=== PATIENT | male | born 1975 | race Caucasian/White ===

== ENCOUNTER 2021-02-18 10:33 | Inpatient (IN) | payer MEDICAID ==
[~2021-02-18] VITALS: Ht 182.9 cm; Wt 102.4 kg
[2021-02-18] VITALS (38 sets, daily range): BP systolic 103–133; BP diastolic 49–76
[2021-02-18] MEDS ORDERED: NALOXONE HCL 1MG/ML 2ML SYRINGE ONE (10:38)
[2021-02-18] MEDS ORDERED: NALOXONE HCL 1MG/ML 2ML SYRINGE IV ONE (10:45)
[2021-02-18 11:06] LABS: Basophils # (auto) 0 10 ^3/uL (0-0.2); Basophils % (auto) 0.5 % (0.0-2.0); Eosinophils # (auto) 0 10 ^3/uL (0-0.8); Hematocrit 37.1 % (41.0-53.0); Hemoglobin 11.8 g/dL (13.5-17.5); Lymphocytes # (auto) 0.5 10 ^3/uL (0.4-5.4); Mean Corpuscular Hemoglobin 30.8 pg (28.0-32.0); Mean Corpuscular Hgb Conc. 31.8 g/dL (32.0-36.0); Mean Corpuscular Volume 96.7 fL (80.0-100.0); Monocytes # (auto) 1.1 10 ^3/uL (0-1.3); Monocytes % (auto) 11.3 % (0.0-12.0); Neutrophils # (auto) 8.3 10 ^3/uL (1.6-8.6); Neutrophils % (auto) 83.2 % (37.0-80.0); Nucleated Red Blood Cells % 0.1 %; Platelet Count (auto) 294 10^3/uL (140-450); Red Blood Cells 3.84 10^6/uL (4.5-5.90); Red Cell Distribution Width 15.2 % (11.8-14.3)
[2021-02-18 11:19] LABS: INR 0.98 (0.9-1.15)
[2021-02-18 11:23] LABS: Albumin 3.1 g/dL (3.4-5.0); Anion Gap 7 (5-15); Blood Urea Nitrogen 13 mg/dL (7-18); Calcium 9.6 mg/dL (8.5-10.1); Carbon Dioxide 29 mmol/L (21-32); Chloride 108 mmol/L (98-107); Glucose 112 mg/dL (74-106); Magnesium 2.8 mg/dL (1.6-2.6); Potassium 5.5 mmol/L (3.5-5.1); Sodium 144 mmol/L (136-145)
[2021-02-18 11:28] LABS: Alanine Aminotransferase 15 U/L (16-61); Alkaline Phosphatase 168 U/L (45-117); Aspartate Aminotransferase 10 U/L (15-37); Bilirubin, Total 0.3 mg/dL (0.2-1.0); GFR African American 69 mL/min; GFR Non-African American 57 mL/min; Total Protein 7.8 g/dL (6.4-8.2)
[2021-02-18] MEDS ORDERED: MIDAZOLAM DRIP 50 mg/50mL 50 ML IV ONE (12:24)
[2021-02-18] MEDS ORDERED: MIDAZOLAM HCL 5 MG/ML-1ML VIAL ONE (12:25)
[2021-02-18 12:27] LABS: Alcohol, Urine < 3.0 mg/dL (0-10); Amphetamine Screen, Urine NEGATIVE (NEGATIVE); Barbiturate Scree,Urine NEGATIVE (NEGATIVE); Benzodiazephine Screen, Urine POSITIVE (NEGATIVE); Cannabinoid Screen, Urine NEGATIVE (NEGATIVE); Cocaine Screen, Urine NEGATIVE (NEGATIVE); Opiate Scree,Urine NEGATIVE (NEGATIVE); Phencyclidine Screen, Urine NEGATIVE (NEGATIVE)
[2021-02-18] MEDS ORDERED: ETOMIDATE (2MG/ML) 20ML VIAL IV ONE (12:27)
[2021-02-18] MEDS: MIDAZOLAM DRIP 50 mg/50mL 50 ML IV SCH ×2 (12:28→20:12)
[2021-02-18] MEDS ORDERED: SUCCINYLCHOLINE CHLORIDE 20 MG/ML 10ML VIAL IV ONE (12:28)
[2021-02-18] MEDS ORDERED: MIDAZOLAM HCL 5 MG/ML-1ML VIAL IV ONE (12:30)
[2021-02-18 12:35] LABS: Lactic Acid w/Reflex 4.6 mmol/L (0.4-2.0)
[2021-02-18 12:48] LABS: Urine Bacteria NONE SEEN /hpf (None Seen); Urine Blood Negative /uL (Negative); Urine Hyaline Cast FEW /lpf (0 - 2); Urine Mucus FEW (None Seen); Urine Specific Gravity 1.018 (1.001-1.035); Urine WBC 4 /hpf (0 - 3)
[2021-02-18] MEDS ORDERED: cefTRIAXone 1GM/50ML D5W 50 ML IV ONE (13:00)
[2021-02-18] MEDS ORDERED: SODIUM CHLORIDE 0.9% 1,000 ML IV SCH (14:15)
[2021-02-18] MEDS ORDERED: NITROGLYCERIN 0.4 MG SL TAB SL PRN (14:15)
[2021-02-18] MEDS ORDERED: MORPHINE SULF INJ 2 MG/ML SYRINGE 1ML IV PRN (14:15)
[2021-02-18] MEDS ORDERED: fentaNYL Drip 2500mCg/250mlNS 250 ML IV ONE (14:52)
[2021-02-18] MEDS: fentaNYL Drip 2500mCg/250mlNS 250 ML IV SCH (14:53)
[2021-02-18 15:42] LABS: BUN/Creatinine Ratio 10.8; Calcium 9.4 mg/dL (8.5-10.1); Potassium 5.3 mmol/L (3.5-5.1)
[2021-02-18] MEDS ORDERED: SODIUM CHLORIDE 0.9% 1,000 ML IV ONE (16:30)
[2021-02-18] MEDS ORDERED: DEXTROSE (50%) 50ML SYRG IV ONE (16:30)
[2021-02-18] MEDS ORDERED: VANCOMYCIN PER PHARMACY 0 MG IV SCH (16:30)
[2021-02-18] MEDS ORDERED: CALCIUM GLUC 1,000mg/50ml-NS 50 ML IV ONE (16:30)
[2021-02-18] MEDS ORDERED: InsuLIN REG 1unit/0.01ml Soln (100units/ml) IV ONE (16:30)
[2021-02-18] MEDS: VANCOMYCIN 1,250 MG in D5W 5% 250 ML IV SCH (17:34)
[2021-02-18] MEDS: PIPERACILLIN-TAZOB 3.375GM 100 ML IV SCH ×2 (18:27→23:34)
[2021-02-18 19:45] LABS: BUN/Creatinine Ratio 13.7; Calcium 9.8 mg/dL (8.5-10.1); Potassium 3.5 mmol/L (3.5-5.1)
[2021-02-19] VITALS (87 sets, daily range): BP systolic 88–140; BP diastolic 50–74
[2021-02-19] MEDS: MIDAZOLAM DRIP 50 mg/50mL 50 ML IV SCH (01:20)
[2021-02-19] MEDS: fentaNYL Drip 2500mCg/250mlNS 250 ML IV SCH (01:21)
[2021-02-19 04:13] LABS: Basophils # (auto) 0.1 10 ^3/uL (0-0.2); Basophils % (auto) 0.8 % (0.0-2.0); Eosinophils # (auto) 0 10 ^3/uL (0-0.8); Hematocrit 29.1 % (41.0-53.0); Hemoglobin 9.7 g/dL (13.5-17.5); Lymphocytes # (auto) 1.6 10 ^3/uL (0.4-5.4); Lymphocytes % (auto) 22.2 % (10.0-50.0); Mean Corpuscular Hemoglobin 30.6 pg (28.0-32.0); Mean Corpuscular Hgb Conc. 33.4 g/dL (32.0-36.0); Mean Corpuscular Volume 91.9 fL (80.0-100.0); Monocytes # (auto) 0.6 10 ^3/uL (0-1.3); Monocytes % (auto) 8.4 % (0.0-12.0); Neutrophils % (auto) 68.6 % (37.0-80.0); Nucleated Red Blood Cells % 0.1 %; Platelet Count (auto) 257 10^3/uL (140-450); Red Blood Cells 3.17 10^6/uL (4.5-5.90); Red Cell Distribution Width 15.6 % (11.8-14.3); White Blood Cell 7.3 10^3/uL (4.4-10.8)
[2021-02-19 04:34] LABS: Albumin 2.4 g/dL (3.4-5.0); Calcium 9.4 mg/dL (8.5-10.1); Magnesium 2.5 mg/dL (1.6-2.6)
[2021-02-19 04:41] LABS: BUN/Creatinine Ratio 20.5; Bilirubin, Total 0.3 mg/dL (0.2-1.0); Total Protein 6.4 g/dL (6.4-8.2)
[2021-02-19 04:52] LABS: Potassium 2.8 mmol/L (3.5-5.1)
[2021-02-19] MEDS: VANCOMYCIN 1,250 MG in D5W 5% 250 ML IV SCH ×2 (05:00→17:06)
[2021-02-19] MEDS ORDERED: D5W/SOD CHL 0.45% 1,000 ML IV SCH (05:15)
[2021-02-19] MEDS: PIPERACILLIN-TAZOB 3.375GM 100 ML IV SCH ×3 (05:33→20:00)
[2021-02-19] MEDS: POTASSIUM CHL 20MEQ/100ML 100 ML IV SCH ×3 (05:39→10:42)
[2021-02-19] MEDS: D5W 5% 1,000 ML IV SCH ×2 (08:12→17:00)
[2021-02-19] MEDS: ENOXAPARIN SOD 40 MG/0.4 ML SYRINGE SC SCH (09:48)
[2021-02-19] MEDS: PANTOPRAZOLE 40 MG/10 ML VIAL INJ IV SCH (09:49)
[2021-02-19] MEDS ORDERED: SENN1TAB14 PO (11:14)
[2021-02-19] MEDS ORDERED: DOCU100T15 PO (11:14)
[2021-02-19] MEDS ORDERED: TAMS1CAP25 PO (11:14)
[2021-02-19] MEDS ORDERED: ACET-6 PO (11:14)
[2021-02-19] MEDS ORDERED: OXYC15TA PO (11:26)
[2021-02-19] MEDS ORDERED: ASPI-543 PO (11:26)
[2021-02-19] MEDS ORDERED: ARIP2TAB PO (11:42)
[2021-02-19] MEDS ORDERED: ATOR10TA PO (11:42)
[2021-02-19] MEDS ORDERED: NITR-52 PO (11:42)
[2021-02-19] MEDS ORDERED: [UNRECOGNIZED DRUG - CODE] PO (12:47)
[2021-02-19] MEDS ORDERED: DONE5TAB80 PO (12:51)
[2021-02-19] MEDS ORDERED: TRAM50TA2 PO (13:08)
[2021-02-19] MEDS ORDERED: GABA400C11 PO (13:08)
[2021-02-19] MEDS ORDERED: LITH300C3 PO (13:08)
[2021-02-19] MEDS ORDERED: POTA10TA32 PO (13:08)
[2021-02-19] MEDS ORDERED: METH500T22 PO (13:08)
[2021-02-19] MEDS ORDERED: MELA3TAB27 PO (13:19)
[2021-02-19] MEDS ORDERED: BETH5TAB2 PO (13:19)
[2021-02-19] MEDS ORDERED: [UNRECOGNIZED DRUG - CODE] PO (13:19)
[2021-02-19] MEDS ORDERED: FURO20TA3 PO (13:19)
[2021-02-19] MEDS ORDERED: FLUO1TAB12 PO (13:29)
[2021-02-19] MEDS ORDERED: FUROSEMIDE 40 MG/4 ML VIAL IV ONE (16:15)
[2021-02-19 20:55] LABS: Magnesium 2.2 mg/dL (1.6-2.6); Potassium 3.2 mmol/L (3.5-5.1)
[2021-02-19 21:01] LABS: BUN/Creatinine Ratio 18.9; Calcium 9.4 mg/dL (8.5-10.1); Potassium 3.2 mmol/L (3.5-5.1)
[2021-02-20] VITALS (30 sets, daily range): BP systolic 99–144; BP diastolic 46–90
[2021-02-20] MEDS: PIPERACILLIN-TAZOB 3.375GM 100 ML IV SCH ×4 (00:21→18:20)
[2021-02-20 04:27] LABS: Basophils # (auto) 0 10 ^3/uL (0-0.2); Basophils % (auto) 0.3 % (0.0-2.0); Eosinophils # (auto) 0 10 ^3/uL (0-0.8); Hemoglobin 10.8 g/dL (13.5-17.5); Lymphocytes # (auto) 1.4 10 ^3/uL (0.4-5.4); Lymphocytes % (auto) 17.3 % (10.0-50.0); Mean Corpuscular Hemoglobin 31.4 pg (28.0-32.0); Mean Corpuscular Hgb Conc. 34.8 g/dL (32.0-36.0); Mean Corpuscular Volume 90.2 fL (80.0-100.0); Monocytes # (auto) 0.5 10 ^3/uL (0-1.3); Monocytes % (auto) 6.8 % (0.0-12.0); Neutrophils % (auto) 75.6 % (37.0-80.0); Platelet Count (auto) 292 10^3/uL (140-450); Red Blood Cells 3.44 10^6/uL (4.5-5.90); Red Cell Distribution Width 15.9 % (11.8-14.3); White Blood Cell 7.9 10^3/uL (4.4-10.8)
[2021-02-20 04:51] LABS: BUN/Creatinine Ratio 18.3; Calcium 9.2 mg/dL (8.5-10.1); Magnesium 2.2 mg/dL (1.6-2.6)
[2021-02-20 04:55] LABS: Potassium 2.8 mmol/L (3.5-5.1)
[2021-02-20] MEDS: POTASSIUM CHL 20MEQ/100ML 100 ML IV SCH ×3 (05:34→10:48)
[2021-02-20] MEDS: PANTOPRAZOLE 40 MG/10 ML VIAL INJ IV SCH (10:03)
[2021-02-20] MEDS: ENOXAPARIN SOD 40 MG/0.4 ML SYRINGE SC SCH (10:03)
[2021-02-20] MEDS ORDERED: ONDANSETRON HCL 4 MG/2 ML VIAL IV PRN (12:15)
[2021-02-20] MEDS ORDERED: MORPHINE SULF INJ 2 MG/ML SYRINGE 1ML ONE (12:17)
[2021-02-20] MEDS: MIDAZOLAM DRIP 50 mg/50mL 50 ML IV SCH (12:25)
[2021-02-20] MEDS: MORPHINE SULF INJ 2 MG/ML SYRINGE 1ML IV PRN ×2 (12:25→22:47)
[2021-02-20] MEDS: D5W 5% 1,000 ML IV SCH (14:00)
[2021-02-20] MEDS: fentaNYL Drip 2500mCg/250mlNS 250 ML IV SCH (15:15)
[2021-02-20] MEDS: ACETAMINOPHEN 325 MG TAB PO PRN (18:47)
[2021-02-20] MEDS: HYDROcodone-ACET 10/325MG TAB PO PRN (21:36)
[2021-02-21] VITALS (22 sets, daily range): BP systolic 96–136; BP diastolic 43–78
[2021-02-21 03:57] LABS: Basophils # (auto) 0 10 ^3/uL (0-0.2); Basophils % (auto) 0.4 % (0.0-2.0); Eosinophils # (auto) 0 10 ^3/uL (0-0.8); Hematocrit 33.5 % (41.0-53.0); Lymphocytes # (auto) 1.2 10 ^3/uL (0.4-5.4); Mean Corpuscular Hgb Conc. 32.8 g/dL (32.0-36.0); Mean Corpuscular Volume 91.3 fL (80.0-100.0); Monocytes # (auto) 0.6 10 ^3/uL (0-1.3); Neutrophils # (auto) 3.9 10 ^3/uL (1.6-8.6); Neutrophils % (auto) 67.6 % (37.0-80.0); Platelet Count (auto) 298 10^3/uL (140-450); Red Blood Cells 3.67 10^6/uL (4.5-5.90); Red Cell Distribution Width 15.5 % (11.8-14.3); White Blood Cell 5.8 10^3/uL (4.4-10.8)
[2021-02-21 04:19] LABS: BUN/Creatinine Ratio 9.6; Calcium 9.5 mg/dL (8.5-10.1); Potassium 3.7 mmol/L (3.5-5.1)
[2021-02-21] MEDS: PIPERACILLIN-TAZOB 3.375GM 100 ML IV SCH ×5 (06:29→23:47)
[2021-02-21] MEDS: D5W 5% 1,000 ML IV SCH (09:20)
[2021-02-21] MEDS: VANCOMYCIN 1GM/250ML 250 ML IV SCH (09:26)
[2021-02-21] MEDS: ACETAMINOPHEN 325 MG TAB PO PRN (09:27)
[2021-02-21] MEDS: ENOXAPARIN SOD 40 MG/0.4 ML SYRINGE SC SCH (09:27)
[2021-02-21] MEDS: PANTOPRAZOLE 40 MG/10 ML VIAL INJ IV SCH (09:27)
[2021-02-21] MEDS: POTASSIUM CHLORIDE 20 MEQ in D5W 5% 1,000 ML IV SCH ×2 (10:30→21:28)
[2021-02-21] MEDS: MIDAZOLAM DRIP 50 mg/50mL 50 ML IV SCH (10:44)
[2021-02-21] MEDS: fentaNYL Drip 2500mCg/250mlNS 250 ML IV SCH (15:15)
[2021-02-21] MEDS: HYDROcodone-ACET 10/325MG TAB PO PRN ×2 (16:15→22:54)
[2021-02-22 04:00] LABS: Basophils # (auto) 0.1 10 ^3/uL (0-0.2); Basophils % (auto) 0.9 % (0.0-2.0); Eosinophils # (auto) 0 10 ^3/uL (0-0.8); Hematocrit 31.1 % (41.0-53.0); Hemoglobin 10.2 g/dL (13.5-17.5); Lymphocytes # (auto) 1.7 10 ^3/uL (0.4-5.4); Lymphocytes % (auto) 25.5 % (10.0-50.0); Mean Corpuscular Hemoglobin 29.8 pg (28.0-32.0); Mean Corpuscular Hgb Conc. 32.9 g/dL (32.0-36.0); Mean Corpuscular Volume 90.6 fL (80.0-100.0); Monocytes # (auto) 0.6 10 ^3/uL (0-1.3); Monocytes % (auto) 9.1 % (0.0-12.0); Neutrophils # (auto) 4.2 10 ^3/uL (1.6-8.6); Neutrophils % (auto) 64.5 % (37.0-80.0); Nucleated Red Blood Cells % 0.3 %; Platelet Count (auto) 303 10^3/uL (140-450); Red Blood Cells 3.44 10^6/uL (4.5-5.90); Red Cell Distribution Width 15.3 % (11.8-14.3); White Blood Cell 6.5 10^3/uL (4.4-10.8)
[2021-02-22 04:20] LABS: BUN/Creatinine Ratio 10.9; Calcium 9.2 mg/dL (8.5-10.1); Phosphorus 3.2 mg/dL (2.5-4.90); Potassium 3.3 mmol/L (3.5-5.1)
[2021-02-22 05:00] VITALS: BP 106/67
[2021-02-22] MEDS: HYDROcodone-ACET 10/325MG TAB PO PRN ×2 (05:05→13:46)
[2021-02-22] MEDS: PIPERACILLIN-TAZOB 3.375GM 100 ML IV SCH (05:45)
[2021-02-22] MEDS: POTASSIUM CHLORIDE 20 MEQ in D5W 5% 1,000 ML IV SCH (06:12)
[2021-02-22 09:00] VITALS: BP 102/56
[2021-02-22] MEDS: PANTOPRAZOLE 40 MG/10 ML VIAL INJ IV SCH (09:54)
[2021-02-22] MEDS: ENOXAPARIN SOD 40 MG/0.4 ML SYRINGE SC SCH (09:54)
[2021-02-22] MEDS: VANCOMYCIN 1GM/250ML 250 ML IV SCH (09:57)
[2021-02-22] MEDS ORDERED: levoFLOXacin 500 MG TAB PO ONE (11:15)
[2021-02-22] MEDS: SOD CHL 0.45% WITH 20MEQ KCL 1,000 ML IV SCH ×2 (12:33→21:00)
[2021-02-22 13:00] VITALS: BP 105/69
[2021-02-22] MEDS ORDERED: POTASSIUM CHL 20 Meq TABLET PO ONE (13:30)
[2021-02-22 16:11] VITALS: BP 124/71
[2021-02-22 16:46] VITALS: BP 111/61
[2021-02-22] MEDS: ACETAMINOPHEN 325 MG TAB PO PRN (20:25)
[2021-02-22 22:00] VITALS: BP 113/72
[2021-02-23] MEDS: HYDROcodone-ACET 10/325MG TAB PO PRN (02:23)
[2021-02-23 05:00] VITALS: BP 129/76
[2021-02-23] MEDS: SOD CHL 0.45% WITH 20MEQ KCL 1,000 ML IV SCH (06:16)
[2021-02-23 09:00] VITALS: BP 92/56
[2021-02-23] MEDS: PANTOPRAZOLE 40 MG/10 ML VIAL INJ IV SCH (10:00)
[2021-02-23] MEDS: ENOXAPARIN SOD 40 MG/0.4 ML SYRINGE SC SCH (10:00)
[2021-02-23 13:00] VITALS: BP 95/52
== END 2021-02-23 16:20 | disposition home health service (06) | DRG 812 ==
LOC: EDBD 10:33 → ER 10:33 → ICU WEST 14:07 → TELE-WESTW 02-21 20:43
PROVIDERS: ADMIT Internal Medicine; ATTEND Internal Medicine
PROC: 06HY33Z Insertion of Infusion Device into Lower Vein, Percutaneous Approach (ICD-10-PCS; principal; 2021-02-18)
PROC: 5A1945Z Respiratory Ventilation, 24-96 Consecutive Hours (ICD-10-PCS; 2021-02-18)
PROC: B54BZZA Ultrasonography of Right Lower Extremity Veins, Guidance (ICD-10-PCS; 2021-02-18)
PROC: 0BH17EZ Insertion of Endotracheal Airway into Trachea, Via Natural or Artificial Opening (ICD-10-PCS; 2021-02-18)
DX: T50.991A Poisoning by other drugs, medicaments and biological substances, accidental (unintentional), initial encounter (principal); N17.0 Acute kidney failure with tubular necrosis; J96.01 Acute respiratory failure with hypoxia; J96.02 Acute respiratory failure with hypercapnia; G92 Toxic encephalopathy; E87.0 Hyperosmolality and hypernatremia; G82.20 Paraplegia, unspecified; E87.2 Acidosis; E87.5 Hyperkalemia; F20.9 Schizophrenia, unspecified; J98.11 Atelectasis; E87.6 Hypokalemia; G82.50 Quadriplegia, unspecified; I48.91 Unspecified atrial fibrillation; N18.30 Chronic kidney disease, stage 3 unspecified; I12.9 Hypertensive chronic kidney disease with stage 1 through stage 4 chronic kidney disease, or unspecified chronic kidney disease; Z20.822 Contact with and (suspected) exposure to COVID-19; Y92.89 Other specified places as the place of occurrence of the external cause
CPT/HCPCS: 36415; 36600; 70450; 71045; 72125; 80048; 80053; 80178; 80202; 80307; 81001; 82805; 83605; 83735; 84100; 84132; 84484; 85025; 85610; 85730; 87040; 87070; 87077; 87081; 87186; 87205; 87426; 93005; 94002; 94003; 95819; 96365; 96375; C9113; G0378; J0330; J0696; J1815; J2250; J2543; J3480; J7060

== ENCOUNTER 2021-02-24 12:22 | Inpatient (IN) | payer MEDICAID ==
[2021-02-24] VITALS (27 sets, daily range): BP systolic 93–141; BP diastolic 52–81
[~2021-02-24] VITALS: Ht 182.9 cm; Wt 102.7 kg
[~2021-02-24 12:22] MED LIST: ACET-6 PO; ARIP2TAB PO; ASPI-543 PO; ATOR10TA PO; BETH5TAB2 PO; DOCU100T15 PO; DONE5TAB80 PO; FLUO1TAB12 PO; FURO20TA3 PO; GABA400C11 PO; LITH300C3 PO; MELA3TAB27 PO; METH500T22 PO; NITR-52 PO; OXYC15TA PO; POTA10TA32 PO; SENN1TAB14 PO; TAMS1CAP25 PO; TRAM50TA2 PO; [UNRECOGNIZED DRUG - CODE] PO; [UNRECOGNIZED DRUG - CODE] PO
[2021-02-24] MEDS ORDERED: PANTOPRAZOLE 40 MG/10 ML VIAL INJ IV ONE (13:00)
[2021-02-24] MEDS ORDERED: CLINDAMYCIN 900MG IV 50 ML IV ONE (13:00)
[2021-02-24] MEDS ORDERED: SODIUM CHLORIDE 0.9% 1,000 ML IV ONE ×2 (13:00)
[2021-02-24] MEDS ORDERED: cefTRIAXone 1GM/50ML D5W 50 ML IV ONE (13:00)
[2021-02-24 13:41] LABS: Basophils # (auto) 0.1 10 ^3/uL (0-0.2); Basophils % (auto) 0.5 % (0.0-2.0); Eosinophils # (auto) 0 10 ^3/uL (0-0.8); Hematocrit 34.1 % (41.0-53.0); Hemoglobin 10.8 g/dL (13.5-17.5); Lymphocytes # (auto) 0.3 10 ^3/uL (0.4-5.4); Lymphocytes % (auto) 3.3 % (10.0-50.0); Mean Corpuscular Hgb Conc. 31.7 g/dL (32.0-36.0); Mean Corpuscular Volume 94.7 fL (80.0-100.0); Monocytes # (auto) 0.3 10 ^3/uL (0-1.3); Monocytes % (auto) 2.6 % (0.0-12.0); Neutrophils # (auto) 9.4 10 ^3/uL (1.6-8.6); Neutrophils % (auto) 93.6 % (37.0-80.0); Nucleated Red Blood Cells % 0.1 %; Platelet Count (auto) 311 10^3/uL (140-450); Red Cell Distribution Width 15.3 % (11.8-14.3)
[2021-02-24 13:57] LABS: Albumin 2.4 g/dL (3.4-5.0); Calcium 9.5 mg/dL (8.5-10.1); Potassium 5.5 mmol/L (3.5-5.1)
[2021-02-24 14:00] LABS: Lactic Acid w/Reflex 8.4 mmol/L (0.4-2.0)
[2021-02-24 14:08] LABS: INR 1.13 (0.9-1.15); Partial Thromboplastin Time 23.9 sec (23.0-31.2)
[2021-02-24 14:09] LABS: Bilirubin, Total 0.2 mg/dL (0.2-1.0); Total Protein 7.1 g/dL (6.4-8.2)
[2021-02-24] MEDS ORDERED: MIDAZOLAM DRIP 50 mg/50mL 50 ML IV ONE (14:11)
[2021-02-24] MEDS ORDERED: NOREPINEPHRINE 8 MG/250ML KIT 250 ML IV ONE (14:11)
[2021-02-24] MEDS ORDERED: NOREPINEPHRINE 8 MG/250ML KIT 250 ML IV SCH (14:15)
[2021-02-24] MEDS: MIDAZOLAM DRIP 50 mg/50mL 50 ML IV SCH (14:25)
[2021-02-24] MEDS ORDERED: MORPHINE SULF INJ 2 MG/ML SYRINGE 1ML IV PRN (17:00)
[2021-02-24] MEDS ORDERED: DEXTROSE (50%) 50ML SYRG IV PRN (17:00)
[2021-02-24] MEDS ORDERED: VANCOMYCIN PER PHARMACY 0 MG IV SCH (17:00)
[2021-02-24] MEDS ORDERED: NITROGLYCERIN 0.4 MG SL TAB SL PRN (17:00)
[2021-02-24] MEDS ORDERED: ONDANSETRON HCL 4 MG/2 ML VIAL IV PRN (17:00)
[2021-02-24] MEDS: NOREPINEPHRINE 8 MG/250ML KIT 250 ML IV SCH (17:11)
[2021-02-24] MEDS ORDERED: VANCOMYCIN 1,250 MG in D5W 5% 250 ML IV ONE (18:00)
[2021-02-24] MEDS ORDERED: PIPERACILLIN-TAZOB 3.375GM 100 ML IV SCH (18:00)
[2021-02-24] MEDS: D5W/LACTATED RINGERS 1,000 ML IV SCH (18:52)
[2021-02-24] MEDS: ACCU-CHEK COMFORT CURVE STRIP VI SCH (18:53)
[2021-02-24] MEDS: InsuLIN REG 1unit/0.01ml Soln (100units/ml) SC SCH (18:53)
[2021-02-24 19:26] LABS: Urine Bacteria NONE SEEN /hpf (None Seen); Urine Blood TRACE /uL (Negative); Urine Hyaline Cast FEW /lpf (0 - 2); Urine Mucus FEW (None Seen); Urine Specific Gravity 1.016 (1.001-1.035); Urine WBC 16 /hpf (0 - 3)
[2021-02-24 19:43] LABS: Alcohol, Urine < 3.0 mg/dL (0-10); Amphetamine Screen, Urine NEGATIVE (NEGATIVE); Barbiturate Scree,Urine NEGATIVE (NEGATIVE); Benzodiazephine Screen, Urine POSITIVE (NEGATIVE); Cannabinoid Screen, Urine NEGATIVE (NEGATIVE); Cocaine Screen, Urine NEGATIVE (NEGATIVE); Opiate Scree,Urine NEGATIVE (NEGATIVE); Phencyclidine Screen, Urine NEGATIVE (NEGATIVE)
[2021-02-24] MEDS: LACTULOSE 20Gm/30ML SOLN GT SCH (22:04)
[2021-02-24] MEDS: ACETAMINOPHEN 650 mg PER 20.3 mL UD GT PRN (22:09)
[2021-02-25] VITALS (108 sets, daily range): BP systolic 99–162; BP diastolic 51–88
[2021-02-25] MEDS: PIPERACILLIN-TAZOB 3.375GM 100 ML IV SCH ×4 (00:46→18:18)
[2021-02-25] MEDS: ACCU-CHEK COMFORT CURVE STRIP VI SCH ×5 (00:46→22:59)
[2021-02-25] MEDS: InsuLIN REG 1unit/0.01ml Soln (100units/ml) SC SCH ×5 (00:46→22:59)
[2021-02-25] MEDS: D5W/LACTATED RINGERS 1,000 ML IV SCH ×4 (01:00→21:52)
[2021-02-25 04:04] LABS: Basophils # (auto) 0.1 10 ^3/uL (0-0.2); Basophils % (auto) 0.6 % (0.0-2.0); Eosinophils # (auto) 0 10 ^3/uL (0-0.8); Hematocrit 31.6 % (41.0-53.0); Hemoglobin 10.3 g/dL (13.5-17.5); Lymphocytes # (auto) 1.1 10 ^3/uL (0.4-5.4); Mean Corpuscular Hemoglobin 29.3 pg (28.0-32.0); Mean Corpuscular Hgb Conc. 32.4 g/dL (32.0-36.0); Mean Corpuscular Volume 90.2 fL (80.0-100.0); Monocytes # (auto) 0.9 10 ^3/uL (0-1.3); Monocytes % (auto) 6.8 % (0.0-12.0); Neutrophils # (auto) 11.2 10 ^3/uL (1.6-8.6); Neutrophils % (auto) 84.6 % (37.0-80.0); Platelet Count (auto) 353 10^3/uL (140-450); Red Cell Distribution Width 14.9 % (11.8-14.3); White Blood Cell 13.3 10^3/uL (4.4-10.8)
[2021-02-25 04:19] LABS: Albumin 2.2 g/dL (3.4-5.0); Calcium 9.4 mg/dL (8.5-10.1); Potassium 3.2 mmol/L (3.5-5.1)
[2021-02-25 04:23] LABS: BUN/Creatinine Ratio 14.8; Bilirubin, Total 0.4 mg/dL (0.2-1.0); Total Protein 6.7 g/dL (6.4-8.2)
[2021-02-25] MEDS: MIDAZOLAM DRIP 50 mg/50mL 50 ML IV SCH (05:45)
[2021-02-25] MEDS ORDERED: TIZA4TAB9 PO (06:32)
[2021-02-25] MEDS ORDERED: LORA-35 PO (06:32)
[2021-02-25] MEDS ORDERED: FENO160T8 PO (06:32)
[2021-02-25] MEDS ORDERED: FURO20TA3 PO (06:48)
[2021-02-25] MEDS: ENOXAPARIN SOD 40 MG/0.4 ML SYRINGE SC SCH (09:47)
[2021-02-25] MEDS: LACTULOSE 20Gm/30ML SOLN GT SCH ×2 (09:47→22:00)
[2021-02-25] MEDS: PANTOPRAZOLE 40 MG/10 ML VIAL INJ IV SCH (09:47)
[2021-02-25] MEDS ORDERED: MAGNESIUM SULF 50% 40 MEQ/10 ML VL IV ONE (11:58)
[2021-02-25] MEDS ORDERED: EPINEPHrine HCL 1 MG/10 ML SYRG IV ONE (11:58)
[2021-02-25] MEDS ORDERED: CALCIUM CHLOR(10%) 100MG/ML 10ML SYRINGE IV ONE (11:58)
[2021-02-25] MEDS: POTASSIUM CHL 20MEQ/100ML 100 ML IV SCH ×2 (14:06→15:48)
[2021-02-25] MEDS: FREE WATER GT SCH ×3 (14:06→22:00)
[2021-02-25] MEDS: VANCOMYCIN 1GM/250ML 250 ML IV SCH ×2 (14:07→22:58)
[2021-02-25] MEDS: NOREPINEPHRINE 8 MG/250ML KIT 250 ML IV SCH (18:11)
[2021-02-25] MEDS: ACETAMINOPHEN 650 mg PER 20.3 mL UD GT PRN ×2 (18:19→22:59)
[2021-02-26] VITALS (106 sets, daily range): BP systolic 89–168; BP diastolic 41–87
[2021-02-26] MEDS: MIDAZOLAM DRIP 50 mg/50mL 50 ML IV SCH ×3 (01:30→19:45)
[2021-02-26] MEDS: FREE WATER GT SCH ×6 (02:00→21:15)
[2021-02-26 04:57] LABS: Basophils # (auto) 0.1 10 ^3/uL (0-0.2); Basophils % (auto) 0.6 % (0.0-2.0); Eosinophils # (auto) 0 10 ^3/uL (0-0.8); Hematocrit 28.3 % (41.0-53.0); Hemoglobin 9.6 g/dL (13.5-17.5); Lymphocytes # (auto) 0.9 10 ^3/uL (0.4-5.4); Lymphocytes % (auto) 7.9 % (10.0-50.0); Mean Corpuscular Hemoglobin 30.3 pg (28.0-32.0); Mean Corpuscular Hgb Conc. 33.9 g/dL (32.0-36.0); Mean Corpuscular Volume 89.4 fL (80.0-100.0); Monocytes # (auto) 0.9 10 ^3/uL (0-1.3); Monocytes % (auto) 7.8 % (0.0-12.0); Neutrophils % (auto) 83.7 % (37.0-80.0); Nucleated Red Blood Cells % 0.1 %; Platelet Count (auto) 342 10^3/uL (140-450); Red Blood Cells 3.16 10^6/uL (4.5-5.90); Red Cell Distribution Width 15.8 % (11.8-14.3); White Blood Cell 11.9 10^3/uL (4.4-10.8)
[2021-02-26 05:16] LABS: Potassium 3.5 mmol/L (3.5-5.1)
[2021-02-26 05:23] LABS: Albumin 2.1 g/dL (3.4-5.0); BUN/Creatinine Ratio 13.1; Bilirubin, Total 0.2 mg/dL (0.2-1.0); Calcium 8.8 mg/dL (8.5-10.1); Total Protein 6.3 g/dL (6.4-8.2)
[2021-02-26] MEDS: InsuLIN REG 1unit/0.01ml Soln (100units/ml) SC SCH ×3 (06:00→18:00)
[2021-02-26] MEDS: PIPERACILLIN-TAZOB 3.375GM 100 ML IV SCH ×4 (06:00→18:42)
[2021-02-26] MEDS: ACCU-CHEK COMFORT CURVE STRIP VI SCH ×3 (06:00→18:00)
[2021-02-26] MEDS: D5W/LACTATED RINGERS 1,000 ML IV SCH ×2 (06:04→17:00)
[2021-02-26] MEDS: LACTULOSE 20Gm/30ML SOLN GT SCH ×2 (11:33→21:15)
[2021-02-26] MEDS: PANTOPRAZOLE 40 MG/10 ML VIAL INJ IV SCH (11:33)
[2021-02-26] MEDS: VANCOMYCIN 1GM/250ML 250 ML IV SCH ×2 (11:33→21:15)
[2021-02-26] MEDS: ENOXAPARIN SOD 40 MG/0.4 ML SYRINGE SC SCH (11:33)
[2021-02-26] MEDS: fentaNYL Drip 2500mCg/250mlNS 250 ML IV SCH (13:00)
[2021-02-26] MEDS: POTASSIUM CHL 20MEQ/100ML 100 ML IV SCH ×2 (13:30→15:30)
[2021-02-26] MEDS: NOREPINEPHRINE 8 MG/250ML KIT 250 ML IV SCH (17:00)
[2021-02-26] MEDS: D5W 5% 1,000 ML IV SCH (23:30)
[2021-02-27] VITALS (93 sets, daily range): BP systolic 88–132; BP diastolic 41–70
[2021-02-27] MEDS: InsuLIN REG 1unit/0.01ml Soln (100units/ml) SC SCH ×4 (00:37→18:00)
[2021-02-27] MEDS: PIPERACILLIN-TAZOB 3.375GM 100 ML IV SCH ×5 (00:37→22:13)
[2021-02-27] MEDS: MIDAZOLAM DRIP 50 mg/50mL 50 ML IV SCH ×2 (00:38→15:47)
[2021-02-27] MEDS: FREE WATER GT SCH ×6 (02:00→22:13)
[2021-02-27 05:01] LABS: Basophils # (auto) 0 10 ^3/uL (0-0.2); Basophils % (auto) 0.4 % (0.0-2.0); Eosinophils # (auto) 0 10 ^3/uL (0-0.8); Hematocrit 26.2 % (41.0-53.0); Hemoglobin 8.6 g/dL (13.5-17.5); Lymphocytes # (auto) 1.1 10 ^3/uL (0.4-5.4); Lymphocytes % (auto) 15.2 % (10.0-50.0); Mean Corpuscular Hemoglobin 29.6 pg (28.0-32.0); Mean Corpuscular Hgb Conc. 32.9 g/dL (32.0-36.0); Mean Corpuscular Volume 90.2 fL (80.0-100.0); Monocytes # (auto) 0.5 10 ^3/uL (0-1.3); Neutrophils # (auto) 5.4 10 ^3/uL (1.6-8.6); Neutrophils % (auto) 77.4 % (37.0-80.0); Platelet Count (auto) 322 10^3/uL (140-450); Red Blood Cells 2.91 10^6/uL (4.5-5.90); Red Cell Distribution Width 16.1 % (11.8-14.3)
[2021-02-27 05:30] LABS: BUN/Creatinine Ratio 13.3; Calcium 8.6 mg/dL (8.5-10.1); Potassium 3.3 mmol/L (3.5-5.1)
[2021-02-27] MEDS: ACCU-CHEK COMFORT CURVE STRIP VI SCH ×4 (05:33→17:59)
[2021-02-27] MEDS: D5W 5% 1,000 ML IV SCH ×2 (05:33→22:12)
[2021-02-27] MEDS: VANCOMYCIN 1GM/250ML 250 ML IV SCH (05:33)
[2021-02-27] MEDS: PANTOPRAZOLE 40 MG/10 ML VIAL INJ IV SCH (10:35)
[2021-02-27] MEDS: LACTULOSE 20Gm/30ML SOLN GT SCH ×2 (10:35→22:26)
[2021-02-27] MEDS: ENOXAPARIN SOD 40 MG/0.4 ML SYRINGE SC SCH (10:35)
[2021-02-27] MEDS: fentaNYL Drip 2500mCg/250mlNS 250 ML IV SCH (12:38)
[2021-02-27] MEDS: POTASSIUM CHL 20MEQ/100ML 100 ML IV SCH ×2 (12:38→15:08)
[2021-02-27] MEDS: NOREPINEPHRINE 8 MG/250ML KIT 250 ML IV SCH (17:00)
[2021-02-27 17:56] LABS: BUN/Creatinine Ratio 11.3; Calcium 8.6 mg/dL (8.5-10.1); Potassium 3.5 mmol/L (3.5-5.1)
[2021-02-27] MEDS ORDERED: Jevity 1.2 Cal/Fiber 1 Liter GT SCH (18:45)
[2021-02-28] VITALS (20 sets, daily range): BP systolic 91–147; BP diastolic 39–73
[2021-02-28] MEDS: FREE WATER GT SCH ×2 (02:00→05:38)
[2021-02-28 03:58] LABS: Basophils # (auto) 0 10 ^3/uL (0-0.2); Basophils % (auto) 0.6 % (0.0-2.0); Eosinophils # (auto) 0 10 ^3/uL (0-0.8); Hematocrit 28.4 % (41.0-53.0); Hemoglobin 9.5 g/dL (13.5-17.5); Lymphocytes # (auto) 1.2 10 ^3/uL (0.4-5.4); Lymphocytes % (auto) 17.7 % (10.0-50.0); Mean Corpuscular Hemoglobin 29.9 pg (28.0-32.0); Mean Corpuscular Hgb Conc. 33.3 g/dL (32.0-36.0); Mean Corpuscular Volume 89.7 fL (80.0-100.0); Monocytes # (auto) 0.7 10 ^3/uL (0-1.3); Monocytes % (auto) 9.6 % (0.0-12.0); Neutrophils # (auto) 4.9 10 ^3/uL (1.6-8.6); Neutrophils % (auto) 72.1 % (37.0-80.0); Platelet Count (auto) 295 10^3/uL (140-450); Red Blood Cells 3.17 10^6/uL (4.5-5.90); Red Cell Distribution Width 15.8 % (11.8-14.3); White Blood Cell 6.8 10^3/uL (4.4-10.8)
[2021-02-28 04:15] LABS: Potassium 3.4 mmol/L (3.5-5.1)
[2021-02-28 04:22] LABS: BUN/Creatinine Ratio 9.3; Calcium 8.8 mg/dL (8.5-10.1)
[2021-02-28] MEDS: D5W 5% 1,000 ML IV SCH (05:37)
[2021-02-28] MEDS: PIPERACILLIN-TAZOB 3.375GM 100 ML IV SCH (05:38)
[2021-02-28] MEDS: InsuLIN REG 1unit/0.01ml Soln (100units/ml) SC SCH ×2 (05:39)
[2021-02-28] MEDS: ACCU-CHEK COMFORT CURVE STRIP VI SCH ×2 (05:39)
[2021-02-28] MEDS ORDERED: VANCOMYCIN 1GM/250ML 250 ML IV SCH (11:00)
== END 2021-02-28 14:02 | DRG 201 ==
LOC: ER 12:22 → EDBD 12:22 → TELE 16:47 → ICU WEST 19:11
PROVIDERS: ADMIT Hospitalist; ATTEND Hospitalist
PROC: 04HY32Z Insertion of Monitoring Device into Lower Artery, Percutaneous Approach (ICD-10-PCS; principal; 2021-02-24)
PROC: 5A1945Z Respiratory Ventilation, 24-96 Consecutive Hours (ICD-10-PCS; 2021-02-24)
PROC: 4A133B1 Monitoring of Arterial Pressure, Peripheral, Percutaneous Approach (ICD-10-PCS; 2021-02-24)
PROC: 4A133J1 Monitoring of Arterial Pulse, Peripheral, Percutaneous Approach (ICD-10-PCS; 2021-02-24)
PROC: 0BH17EZ Insertion of Endotracheal Airway into Trachea, Via Natural or Artificial Opening (ICD-10-PCS; 2021-02-24)
PROC: 0BP1XDZ Removal of Intraluminal Device from Trachea, External Approach (ICD-10-PCS; 2021-02-28)
DX: I47.2 Ventricular tachycardia (principal); I46.9 Cardiac arrest, cause unspecified; J69.0 Pneumonitis due to inhalation of food and vomit; J96.01 Acute respiratory failure with hypoxia; G93.1 Anoxic brain damage, not elsewhere classified; G82.50 Quadriplegia, unspecified; N17.9 Acute kidney failure, unspecified; J98.11 Atelectasis; D64.9 Anemia, unspecified; E87.0 Hyperosmolality and hypernatremia; E87.1 Hypo-osmolality and hyponatremia; E87.6 Hypokalemia; Z20.822 Contact with and (suspected) exposure to COVID-19; Z51.5 Encounter for palliative care; Z66 Do not resuscitate; I12.9 Hypertensive chronic kidney disease with stage 1 through stage 4 chronic kidney disease, or unspecified chronic kidney disease; G93.89 Other specified disorders of brain; F20.9 Schizophrenia, unspecified; F31.9 Bipolar disorder, unspecified; J44.9 Chronic obstructive pulmonary disease, unspecified; Z79.82 Long term (current) use of aspirin; Z79.899 Other long term (current) drug therapy; Z81.8 Family history of other mental and behavioral disorders; Z82.49 Family history of ischemic heart disease and other diseases of the circulatory system; Z83.3 Family history of diabetes mellitus; Z98.1 Arthrodesis status; N18.31 Chronic kidney disease, stage 3a
CPT/HCPCS: 31500; 36415; 36556; 36600; 70450; 71045; 71250; 72125; 74176; 80048; 80053; 80202; 80307; 81001; 82140; 82805; 82962; 83605; 83880; 84484; 85025; 85610; 85730; 87040; 87070; 87077; 87081; 87186; 87205; 87426; 93005; 93306; 94003; 95819; 96361; 96365; 96368; 99291; A4618; C9113; G0378; J0696; J2250; J2543; J3480; J3490; J7060